=== PATIENT | male | born 1970 | race African-American/Black ===

== ENCOUNTER 2023-01-14 22:57 | Emergency (ER) | payer OTHER, SELFPAY ==
[2023-01-14 22:59] VITALS: BP 162/98; PULSE 72; RESP 16; TEMP 36.1; O2SAT 99
--- NOTE | 2023-01-15 01:05 | ED.EXTPRO ---
HPI - Extremity Problem General Chief complaint: Extremity Problem,Nontraumatic Stated complaint: left elbow swelling Time Seen by Provider: 01/15/23 00:07 History of Present Illness HPI Narrative: 52-year-old male here for evaluation of atraumatic left elbow swelling over the past several hours. Patient states that he noticed this when he took his jacket off. There is localized swelling at the elbow. He denies any significant pain, reports some tightness with range of motion. No fevers or chills, nausea or vomiting. Related Data Allergies Allergy/AdvReac Type Severity Reaction Status Date / Time No Known Allergies Allergy Verified 01/14/23 22:58 Review of Systems Review of Systems: Gen.: Denies fevers or chills Eyes: Denies eye pain or visual change ENT: Denies congestion Respiratory: Denies shortness of breath or cough CV: Denies chest pain or palpitations GI: Denies abdominal pain nausea, emesis or diarrhea denies burning, urgency, frequency or hematuria Musculoskeletal: Reports left elbow swelling Neuro: Denies numbness, tingling, weakness or focal weakness Skin: Denies rash Except as documented, all other systems reviewed and negative Exam Narrative: APPEARANCE: Well appearing, no pain in distress, well-nourished. Head: Normocephalic and atraumatic. EYES: PERRLA/EOMI, conjunctivae clear NOSE: No nasal drainage EARS: External ear normal in appearance THROAT: Oropharynx is clear. Mucous membranes are moist. NECK: Supple. No adenopathy, no masses. RESPIRATORY: Airway patent, respirations nonlabored. Clear to auscultation bilaterally, no rales, rhonchi, wheezing. CARDIOVASCULAR: Regular rate and rhythm without murmurs, rubs, or gallops. ABDOMINAL: Normoactive bowel sounds. Soft, nontender, nondistended. No rebound tenderness or guarding. MUSCULOSKELETAL: There is an area of fluctuance at the left olecranon that is nontender to palpation. There is no overlying redness or warmth. There is no pain with range of motion of the elbow. NEURO: Normal speech. No focal neurologic deficits. SKIN: Skin is warm and dry. No rashes. PSYCHIATRIC: Normal affect/mood.. Course Vital Signs Vital signs: Vital Signs Temperature 97.0 F L 01/14/23 22:59 Pulse Rate 72 01/14/23 22:59 Respiratory Rate 16 01/14/23 22:59 Blood Pressure 162/98 H 01/14/23 22:59 Pulse Oximetry 99 01/14/23 22:59 Oxygen Delivery Room Air 01/14/23 22:59 Temperature 97.0 F L 01/14/23 22:59 Pulse Rate 72 01/14/23 22:59 Respiratory Rate 16 01/14/23 22:59 Blood Pressure 162/98 H 01/14/23 22:59 Pulse Oximetry 99 01/14/23 22:59 Oxygen Delivery Room Air 01/14/23 22:59 MDM - Extremity (Nontraumatic) MDM Narrative Medical decision making narrative: 52-year-old male here for evaluation of atraumatic right elbow swelling x1 day, exam consistent with olecranon bursitis. No evidence of septic bursitis given lack of warmth, redness or tenderness to palpation. Shared decision-making was used with patient who elected not to have aspiration at this time and agrees with plan for outpatient orthopedic follow-up. Atraumatic; no need for imaging. Marquez wrap was applied in the ED. Discharge Plan Discharge Clinical Impression: Bursitis, olecranon Patient Disposition: Home, Self-Care Condition: Stable Instructions: Antibiotic Form, Elbow Bursitis (ED) Additional Instructions: Please wear the Marquez wrap compression. Alternate between Tylenol and ibuprofen. You can take 1000mg of Tylenol every 6 hours and 800 mg Motrin/ibuprofen every 8 hours. Follow-up with orthopedics. Return to the ED if you are worse. Follow-up/Referrals: Uri-Tylor,Amee Tenorio MD [Primary Care Provider] - Tarik Hughes MD [Physician] - 1 Week
== END 2023-01-15 01:34 | disposition home or self-care (01) ==
PROVIDERS: Emergency Provider Physician Assistant; PCP Family Medicine
DX: M70.21 Olecranon bursitis, right elbow (principal)
CPT/HCPCS: 99281